=== PATIENT | male | born 1980 | race Hispanic/Latino ===

== ENCOUNTER 2020-10-20 21:02 | Emergency (ER) | payer SELFPAY | END 2020-10-20 22:00 | disposition left against medical advice (07) | LOC: ED 21:02 | DX: K46.9 Unspecified abdominal hernia without obstruction or gangrene (principal); Z53.21 Procedure and treatment not carried out due to patient leaving prior to being seen by health care provider ==

== ENCOUNTER 2020-12-06 17:10 | Observation (INO) | payer OTHER ==
[2020-12-06] MEDS ORDERED: SODIUM CHLORIDE 0.9% 1000 ML 1,000 ML IV ONE (18:53)
[2020-12-06] MEDS ORDERED: ONDANSETRON 4 MG/2 ML INJ IV ONE (18:53)
[2020-12-06] MEDS ORDERED: MORPHINE 4 MG/1 ML INJ IV ONE (18:53)
[2020-12-06] MEDS ORDERED: MORPHINE 2 MG/1 ML INJ IV ONE ×2 (19:08)
[2020-12-06 19:26] LABS: Hematocrit 45.4 % (35.5-45.6); Hemoglobin 15.2 gm/dl (11.8-15.2); Mean Corpuscular HGB Conc 33 % (32-34); Mean Corpuscular Volume 95 fl (84-94); Platelet Count 371 K/mm3 (140-440); Red Blood Count 4.79 M/mm3 (3.65-5.03); Red Cell Distribution Width 13.3 % (13.2-15.2)
[2020-12-06 19:36] LABS: Alanine Aminotransferase 13 units/L (7-56); Albumin 4.9 g/dL (3.9-5); BUN/Creatinine Ratio 13; Blood Urea Nitrogen 10 mg/dL (9-20); Calcium 9.4 mg/dL (8.4-10.2); Hemolysis Index 69
--- NOTE | 2020-12-06 19:45 | Emergency Department Report ---
ED Abdominal Pain HPI - General Chief Complaint: Urogenital-Male Stated Complaint: HERNIA Time Seen by Provider: 12/06/20 18:48 Source: patient Mode of arrival: Ambulatory Limitations: No Limitations - History of Present Illness Initial Comments: Patient is a 40-year-old male presents emergency room complaints of sudden onset of pain from his hernia. He states he has had the hernia for several years. 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 He states earlier today the hernia began to bulge and he was unable to push it back in. He states that it has been increasing in size to the scrotum during the day. He states that he just began vomiting right before he came into the emergency room he states now he is having difficulty urinating. He states his pain is severe. He states he had a normal bowel movement earlier today. He denies any hematochezia, melena, hematemesis, fever. Past medical history of Hodgkin's lymphoma and previous hernia repair. no allergies to meds. Severity scale (0 -10): 10 - Related Data Home Medications Medication Instructions Recorded Confirmed Last Taken Morphine Sulfate [Morphine Sulfate 30 mg PO Q8HR PRN 01/23/13 01/23/13 01/23/13 04:00 ER] Ondansetron (Nf) [Zofran] 8 mg PO Q8HR PRN 01/23/13 01/23/13 01/23/13 04:00 Promethazine HCl [Phenadoz] 25 mg RC Q6HR PRN 01/23/13 01/23/13 01/21/13 Allergies Allergy/AdvReac Type Severity Reaction Status Date / Time No Known Allergies Allergy Verified 01/23/13 09:39 ED Review of Systems ROS: Stated complaint: HERNIA Other details as noted in HPI Comment: All other systems reviewed and negative ED Past Medical Hx - Past Medical History Hx of Cancer: Yes (hodgkins lymphoma 2014) Hx HIV: No - Surgical History Additional Surgical History: hernia repair as kid - Social History Smoking Status: Current Every Day Smoker Substance Use Type: Marijuana - Medications Home Medications: Home Medications Medication Instructions Recorded Confirmed Last Taken Type Morphine Sulfate [Morphine Sulfate 30 mg PO Q8HR PRN 01/23/13 01/23/13 01/23/13 04:00 History ER] Ondansetron (Nf) [Zofran] 8 mg PO Q8HR PRN 01/23/13 01/23/13 01/23/13 04:00 History Promethazine HCl [Phenadoz] 25 mg RC Q6HR PRN 01/23/13 01/23/13 01/21/13 History ED Physical Exam - General Limitations: No Limitations General appearance: alert, other (appears to be in pain ) - Head Head exam: Present: atraumatic, normocephalic - Eye Eye exam: Present: normal appearance - ENT ENT exam: Present: mucous membranes moist - Respiratory Respiratory exam: Present: normal lung sounds bilaterally. Absent: respiratory distress, wheezes, rales, rhonchi, stridor, chest wall tenderness, accessory muscle use, decreased breath sounds, prolonged expiratory - Cardiovascular Cardiovascular Exam: Present: normal rhythm, tachycardia, normal heart sounds - GI/Abdominal GI/Abdominal exam: Present: tenderness, guarding, hernia (there is a large left sided inguinal hernia that is unable to be reduced, dollyman: sagar KUHN). Absent: rebound - Neurological Exam Neurological exam: Present: alert, oriented X3 - Psychiatric Psychiatric exam: Present: normal affect, normal mood - Skin Skin exam: Present: warm, dry, intact ED Course Vital Signs 12/06/20 12/06/20 12/06/20 19:21 19:45 19:47 Pulse Rate 56 L Respiratory 18 14 18 Rate Blood Pressure 156/80 O2 Sat by Pulse 98 Oximetry - Consultations Consultation #1: 12/06/20 19:[address] Osorio, general surgery who will evaluate patient in the ED 12/06/20 20:[address] Ray, hospitalist regarding patient and results and that patient is going to the operating room with Dr. Osorio, general surgery, he will accept and resume care of patient, will admit to hospital service ED Medical Decision Making - Lab Data Result diagrams: 12/06/20 19:00 12/06/20 19:00 Lab Results 12/06/20 12/06/20 Range/Units 19:00 19:00 WBC 20.6 H (4.5-11.0) K/mm3 RBC 4.79 (3.65-5.03) M/mm3 Hgb 15.2 (11.8-15.2) gm/dl Hct 45.4 (35.5-45.6) % MCV 95 H (84-94) fl MCH 32 (28-32) pg MCHC 33 (32-34) % RDW 13.3 (13.2-15.2) % Plt Count 371 (140-440) K/mm3 Sodium 140 (137-145) mmol/L Potassium 4.4 (3.6-5.0) mmol/L Chloride 101.2 (98-107) mmol/L Carbon Dioxide 23 (22-30) mmol/L Anion Gap 20 mmol/L BUN 10 (9-20) mg/dL Creatinine 0.8 (0.8-1.3) mg/dL Estimated GFR > 60 ml/min BUN/Creatinine Ratio 13 % Glucose 148 H (75-100) mg/dL Calcium 9.4 (8.4-10.2) mg/dL Total Bilirubin 0.30 (0.1-1.2) mg/dL AST 21 (5-40) units/L ALT 13 (7-56) units/L Alkaline Phosphatase 62 (35-129) units/L Total Protein 7.3 (6.3-8.2) g/dL Albumin 4.9 (3.9-5) g/dL Albumin/Globulin Ratio 2.0 % Lipase 18 (13-60) units/L Vital Signs 12/06/20 12/06/20 12/06/20 19:21 19:45 19:47 Pulse Rate 56 L Respiratory 18 14 18 Rate Blood Pressure 156/80 O2 Sat by Pulse 98 Oximetry - Medical Decision Making Patient is a 40-year-old male presents emergency room complaints of sudden onset of pain from his hernia. He states he has had the hernia for several years. 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 He states earlier today the hernia began to bulge and he was unable to push it back in. He states that it has been increasing in size to the scrotum during the day. He states that he just began vomiting right before he came into the emergency room he states now he is having difficulty urinating. He states his pain is severe. He states he had a normal bowel movement earlier today. He denies any hematochezia, melena, hematemesis, fever. Past medical history of Hodgkin's lymphoma and previous hernia repair. no allergies to meds. on exam: there is a large left sided inguinal hernia that is unable to be reduced, dollyman: sagar KUHN. labs significant for leukocytosis at 20.6. Spoke to Dr. Osorio, general surgery who will evaluate patient in the ED. Spoke to Dr. Ray, hospitalist regarding patient and results and that patient is going to the operating room with Dr. Osorio, general surgery, he will accept and resume care of patient, will admit to hospital service Critical care attestation.: If time is entered above; I have spent that time in minutes in the direct care of this critically ill patient, excluding procedure time. ED Disposition Clinical Impression: Incarcerated left inguinal hernia Abdominal pain Qualifiers: Abdominal location: left lower quadrant Qualified Code(s): R10.32 - Left lower quadrant pain Testicular pain Qualifiers: Laterality: left Qualified Code(s): N50.812 - Left testicular pain Leukocytosis Qualifiers: Leukocytosis type: unspecified Qualified Code(s): D72.829 - Elevated white blood cell count, unspecified Nausea & vomiting Qualifiers: Vomiting type: unspecified Vomiting Intractability: non-intractable Qualified Code(s): R11.2 - Nausea with vomiting, unspecified Disposition: 09 ADMITTED INPATIENT Is pt being admited?: Yes Does the pt Need Aspirin: No Condition: Fair Referrals: PRIMARY CARE, [Primary Care Provider] - 3-5 Days Time of Disposition: 20:17 Print Language: IRISH
--- NOTE | 2020-12-06 19:54 | Consultation ---
History of Present Illness Consult date: 12/06/20 Reason for consult: abdominal pain - History of present illness History of present illness: 40 yo male with chronic LIH. Was lifting today and hernia became incarcerated. He c/o severe LLQ and left scrotal pain ass'd with nausea and vomiting. He denies hematochezia or fever. Past History Past Medical History: other (Hodgkin's lymphoma of the neck 6 years ago.) Medications and Allergies Allergies Allergy/AdvReac Type Severity Reaction Status Date / Time No Known Allergies Allergy Verified 01/23/13 09:39 Home Medications Medication Instructions Recorded Confirmed Last Taken Type Morphine Sulfate [Morphine Sulfate 30 mg PO Q8HR PRN 01/23/13 01/23/13 01/23/13 04:00 History ER] Ondansetron (Nf) [Zofran] 8 mg PO Q8HR PRN 01/23/13 01/23/13 01/23/13 04:00 History Promethazine HCl [Phenadoz] 25 mg RC Q6HR PRN 01/23/13 01/23/13 01/21/13 History Active Meds: Active Medications Sodium Chloride (Nacl 0.9% 1000 Ml) 1,000 mls @ 999 mls/hr IV BOLUS ONE Stop: 12/06/20 19:53 Last Admin: 12/06/20 19:13 Dose: 999 mls/hr Documented by: Review of Systems All systems: negative (none) Exam Vital Signs Resp 18 12/06/20 19:21 - General physical appearance Positive: well developed, well nourished, moderate distress, moderate pain, cathetic - Eyes Positive: PERRL, normal occular movement - ENT Positive: normal pinna, normal nares, normal mucosa, no hearing loss, no congestion - Neck Positive: no masses, no bruits, trachea midline, no venous distension - Respiratory Positive: normal expansion, normal respiratory effort, clear to auscultation - Cardiovascular Rhythm: regular Heart Sounds: Present: S1 & S2. Absent: rub, click - Extremities Extremities: no ischemia, pulses symmetrical, No edema - Breasts Breasts: normal, no mass, no skin changes - Abdomen Abdomen: Present: soft, bowel sounds hypoactive, other (Mild LLQ pain. Moderate pain on palpation of the left scrotum. No rebound or guarding.). Absent: distended Hernia: none - Genitourinary Male Genitourinary: normal Female Genitourinary: normal - Integumentary no rash, no growths, no abnormal pigmentation - Neurologic Neurologic: alert and oriented to time, place and person, motor strength and sensation are grossly intact - Musculoskeletal normal gait, normal posture - Psychiatric Psychiatric: appropriate mood/affect, intact judgment & insight Results - Labs 12/06/20 19:00 12/06/20 19:00 Abnormal lab results 12/06/20 Range/Units 19:00 WBC 20.6 H (4.5-11.0) K/mm3 MCV 95 H (84-94) fl Assessment and Plan - Patient Problems (1) Incarcerated left inguinal hernia Status: Acute Plan to address problem: 1) To OR for urgent reduction and repair. Pt and girl friend are aware of risks of recurrence, small bowel or colonic gangrene, testis injury and are aware that a SBR or colostomy may be necessary. Loss of left testis was also discussed as well as WA, CVA and . Pt understands these risks and desires to proceed.
[2020-12-06] MEDS ORDERED: BUPIVACAINE/PF (0.5%) 5 MG/1 ML 10 ML VIAL INFILTRATI ONE ×2 (19:59→20:45)
--- NOTE | 2020-12-06 20:06 | Anesthesia Consultation ---
Anesthesia Consult and Med Hx Date of service: 12/06/20 - Airway Anesthetic Teeth Evaluation: Good ROM Head & Neck: Adequate Mental/Hyoid Distance: Adequate Mallampati Class: Class II Intubation Access Assessment: Good - Pulmonary Exam CTA: Yes - Cardiac Exam Cardiac Exam: RRR - Pre-Operative Health Status ASA Pre-Surgery Classification: ASA2 Proposed Anesthetic Plan: General - Pulmonary Hx Smoking: Yes - Central Nervous System Hx Back Pain: Yes (2 mo) Hx Psychiatric Problems: Yes - Other Systems Hx Cancer: Yes
--- NOTE | 2020-12-06 20:07 | Anesthesia Day of Surgery ---
Anesthesia Day of Surgery - Day of Surgery Patient Examined: Yes Patient H&P Reviewed: Yes Patient is NPO: Yes
[2020-12-06] MEDS ORDERED: LIDOCAINE MPF (2%) 20 MG/1 ML VIAL 5 ML ONE (20:13)
[2020-12-06] MEDS ORDERED: ROCURONIUM 50 MG/5 ML INJ IV ONE (20:13)
[2020-12-06] MEDS ORDERED: MIDAZOLAM 2 MG/2 ML INJ ONE (20:13)
[2020-12-06] MEDS ORDERED: fentaNYL 100 MCG/2 ML INJ ONE (20:13)
[2020-12-06] MEDS ORDERED: propofoL 200 MG/20 ML VIAL IV ONE (20:14)
[2020-12-06] MEDS ORDERED: SODIUM CHLORIDE 0.9% IRR 1,500 ML BOTTLE IR ONE (20:47)
[2020-12-06] MEDS ORDERED: KETOROLAC 30 MG/1 ML INJ ONE (20:56)
[2020-12-06] MEDS ORDERED: ONDANSETRON 4 MG/2 ML INJ ONE (20:56)
[2020-12-06] MEDS ORDERED: dexAMETHasone 20 MG/5 ML VIAL ONE (20:56)
[2020-12-06] MEDS ORDERED: HYDROmorphone 1 MG/1 ML INJ ONE (20:58)
[2020-12-06] MEDS ORDERED: NEOSTIGMINE 10MG/10 ML INJ MDV ONE (21:48)
[2020-12-06] MEDS ORDERED: GLYCOPYRROLATE 0.4 MG/2 ML INJ ONE (21:48)
--- NOTE | 2020-12-06 21:49 | Procedure Note ---
Date of procedure: 12/06/20 Pre-op diagnosis: Incarcerated LIH Post-op diagnosis: same Procedure: Open repair of incarcerated LIH Description of procedure: Pt was placed supine on the OR table. GETA was administered. Lower abdomen, penis and scrotum were prepped and draped. The p roposed incision was infiltrated with 8 ml of 0.5% Marcaine. A curvilinear suprapubic incision was made. SQ tissue was transected with the Bovie. External oblique aponeurosis was exposed. The aponeurosis was incised over the inguinal canal through the external inguinal ring. Digital dissection was performed about the hernia sac in the scrotum until the hernia sac was delivered into the wound. The sac was dissected free of the cord structures. The hernia was determined to be of the indirect type. The broad based sac was dissected down to it's fascial margins and was excised. A Bassini type repair was performed by approximating the conjoined tendon medially to the shelving portion of Poupart's ligament laterally with multiple interrupted sutures of 0-Ethibond. The external oblique aponeurosis was approximated with a running suture of 3-0 Vicryl. Skin was approximated with a running subcuticular suture of 4-0 Monocryl. Skin glue was applied followed by a pressure dressing of 4 X 4's secured with Medipore tape. A scrotal support was also placed to help diminish the expected scrotal seroma. Pt tolerated the procedure well. Pt was taken to PACU in stable condition. Findings: Ischemic but viable small bowel Anesthesia: GETA Surgeon: LAVON ALMANZA Estimated blood loss: minimal Pathology: none Specimen disposition: discarded Condition: stable Disposition: PACU
[2020-12-06] MEDS ORDERED: ONDANSETRON 4 MG/2 ML INJ IV PRN (21:59)
[2020-12-06] MEDS ORDERED: ACETAMINOPHEN 325 MG TAB PO PRN (21:59)
[2020-12-06 22:00] LABS: Total Cells Counted 100
[2020-12-06 22:01] LABS: Platelet Estimate Consistent w Auto; RBC Morphology Normal
[2020-12-06] MEDS ORDERED: MEPERIDINE 25 MG/1 ML INJ ONE (22:09)
[2020-12-07] MEDS: AMPICILLIN/SULBACTA 3GM/100ML 3 GM/100 ML BAG IV SCH ×4 (00:56→17:44)
[2020-12-07] MEDS: D5W/0.9% NACL 1,000 ML IV SCH ×2 (00:57→17:44)
[2020-12-07] MEDS: HEPARIN 5,000 UNIT/1 ML VIAL SUB-Q SCH ×3 (00:59→22:06)
[2020-12-07 06:14] LABS: Hematocrit 36.4 % (35.5-45.6); Hemoglobin 12.4 gm/dl (11.8-15.2); Lymphocytes # (Auto) 1.1 K/mm3 (1.2-5.4); Lymphocytes % (Auto) 7.5 % (13.4-35.0); Mean Corpuscular HGB Conc 34 % (32-34); Mean Corpuscular Volume 95 fl (84-94); Monocytes % (Auto) 6.3 % (0.0-7.3); Platelet Count 279 K/mm3 (140-440); Red Blood Count 3.82 M/mm3 (3.65-5.03); Red Cell Distribution Width 13.1 % (13.2-15.2)
[2020-12-07 06:36] LABS: Alanine Aminotransferase 9 units/L (7-56); Albumin 3.5 g/dL (3.9-5); Blood Urea Nitrogen 9 mg/dL (9-20); Calcium 7.4 mg/dL (8.4-10.2); Hemolysis Index 30
[2020-12-07 06:44] LABS: BUN/Creatinine Ratio 13
--- NOTE | 2020-12-07 07:35 | History and Physical Report ---
History of Present Illness Date of examination: 12/06/20 Date of admission: 12/06/20 23:36 Chief complaint: Obstructed left inguinal hernia and unable to reduce it since morning History of present illness: 40-year-old male with left inguinal hernia for several years comes in for pain and unable to push back and unreducible hernia. Pain is about 8 on a scale of 1-10. Hernia is increasing in size extending into the scrotum. Also vomiting since afternoon. In the emergency room patient was diagnosed with incarcerated hernia and no significant past medical history except for lymphoma which was treated. - Past Medical History --Cancer: Yes (hodgkins lymphoma 2014) - Surgical History Additional Surgical History: hernia repair as kid - Social History Smoking Status: Current Every Day Smoker Substance Use Type: Marijuana - Medications Home Medications: Home Medications Medication Instructions Recorded Confirmed Last Taken Type Morphine Sulfate [Morphine Sulfate 30 mg PO Q8HR PRN 01/23/13 01/23/13 01/23/13 04:00 History ER] Ondansetron (Nf) [Zofran] 8 mg PO Q8HR PRN 01/23/13 01/23/13 01/23/13 04:00 History Promethazine HCl [Phenadoz] 25 mg RC Q6HR PRN 01/23/13 01/23/13 01/21/13 History Review of Systems ROS: Stated complaint: HERNIA Other details as noted in HPI Comment: All other systems reviewed and negative Past History Past Medical History: other (Hodgkin's lymphoma of the neck 6 years ago.) Medications and Allergies Allergies Allergy/AdvReac Type Severity Reaction Status Date / Time No Known Allergies Allergy Verified 01/23/13 09:39 Home Medications Medication Instructions Recorded Confirmed Last Taken Type Morphine Sulfate [Morphine Sulfate 30 mg PO Q8HR PRN 01/23/13 12/06/20 01/23/13 04:00 History ER] Ondansetron (Nf) [Zofran] 8 mg PO Q8HR PRN 01/23/13 12/06/20 01/23/13 04:00 History Promethazine HCl [Phenadoz] 25 mg RC Q6HR PRN 01/23/13 12/06/20 01/21/13 History Active Meds: Active Medications Acetaminophen (Acetaminophen 325 Mg Tab) 650 mg PO Q4H PRN PRN Reason: Pain MILD(1-3)/Fever >100.5/SANTILLAN Heparin Sodium (Porcine) (Heparin 5,000 Unit/1 Ml Vial) 5,000 unit SUB-Q Q12HR [facility] Last Admin: 12/07/20 00:59 Dose: 5,000 unit Documented by: Hydromorphone HCl (Hydromorphone 1 Mg/1 Ml Inj) 0.5 mg IV Q3H PRN PRN Reason: Pain , Severe (7-10) Dextrose/Sodium Chloride (D5ns) 1,000 mls @ 100 mls/hr IV DIRECT [facility] Last Admin: 12/07/20 00:57 Dose: 100 mls/hr Documented by: Ampicillin Sodium/Sulbactam Sodium (Unasyn/Ns 3 Gm/100 Ml) 3 gm in 100 mls @ 1 00 mls/hr IV Q6HR [facility]; Protocol Last Admin: 12/07/20 05:32 Dose: 100 mls/hr Documented by: Morphine Sulfate (Morphine 2 Mg/1 Ml Inj) 2 mg IV Q4H PRN PRN Reason: Pain, Moderate (4-6) Ondansetron HCl (Ondansetron 4 Mg/2 Ml Inj) 4 mg IV Q8H PRN PRN Reason: Nausea And Vomiting Sodium Chloride (Sodium Chloride 0.9% 10 Ml Flush Syringe) 10 ml IV BID [facility] Last Admin: 12/07/20 01:20 Dose: 10 ml Documented by: Sodium Chloride (Sodium Chloride 0.9% 10 Ml Flush Syringe) 10 ml IV PRN PRN PRN Reason: LINE FLUSH Exam - Constitutional Vitals: Temp Pulse Resp BP Pulse Ox 97.7 F 62 18 110/64 96 12/07/20 06:01 12/07/20 06:01 12/07/20 06:01 12/07/20 06:01 12/07/20 06:01 General appearance: Present: mild distress, well-nourished - EENT Eyes: Present: PERRL ENT: hearing intact, clear oral mucosa - Neck Neck: Present: supple, normal ROM - Respiratory Respiratory effort: normal Respiratory: bilateral: CTA - Cardiovascular Heart rate: 78 Rhythm: regular Heart Sounds: Present: S1 & S2. Absent: rub, click - Extremities Extremities: no ischemia, pulses symmetrical, No edema, abnormal (Left inguinal hernia not reducible) Peripheral Pulses: within normal limits - Abdominal General gastrointestinal: Present: tender (Left inguinal hernia), hypoactive bowel sounds, hernia (Left inguinal hernia-- unable to reduce) Male genitourinary: Present: normal - Integumentary Integumentary: Present: clear, warm, dry - Musculoskeletal Musculoskeletal: gait normal, strength equal bilaterally - Psychiatric Psychiatric: appropriate mood/affect, intact judgment & insight - Neurologic Neurologic: CNII-XII intact, moves all extremities Results - Labs CBC & Chem 7: 12/07/20 04:00 12/07/20 04:00 Labs: Laboratory Last Values WBC 15.2 K/mm3 (4.5-11.0) H 12/07/20 04:00 RBC 3.82 M/mm3 (3.65-5.03) 12/07/20 04:00 Hgb 12.4 gm/dl (11.8-15.2) 12/07/20 04:00 Hct 36.4 % (35.5-45.6) D 12/07/20 04:00 MCV 95 fl (84-94) H 12/07/20 04:00 MCH 32 pg (28-32) 12/07/20 04:00 MCHC 34 % (32-34) 12/07/20 04:00 RDW 13.1 % (13.2-15.2) L 12/07/20 04:00 Plt Count 279 K/mm3 (140-440) 12/07/20 04:00 Lymph % (Auto) 7.5 % (13.4-35.0) L 12/07/20 04:00 Burnett % (Auto) 6.3 % (0.0-7.3) 12/07/20 04:00 Eos % (Auto) 0.0 % (0.0-4.3) 12/07/20 04:00 Baso % (Auto) 0.0 % (0.0-1.8) 12/07/20 04:00 Lymph # (Auto) 1.1 K/mm3 (1.2-5.4) L 12/07/20 04:00 Burnett # (Auto) 1.0 K/mm3 (0.0-0.8) H 12/07/20 04:00 Eos # (Auto) 0.0 K/mm3 (0.0-0.4) 12/07/20 04:00 Baso # (Auto) 0.0 K/mm3 (0.0-0.1) 12/07/20 04:00 Add Manual Diff Complete 12/06/20 19:00 Total Counted 100 12/06/20 19:00 Seg Neutrophils % 86.2 % (40.0-70.0) H 12/07/20 04:00 Seg Neuts % (Manual) 85.0 % (40.0-70.0) H 12/06/20 19:00 Lymphocytes % (Manual) 8.0 % (13.4-35.0) L 12/06/20 19:00 Monocytes % (Manual) 7.0 % (0.0-7.3) 12/06/20 19:00 Nucleated RBC % Not Reportable 12/06/20 19:00 Seg Neutrophils # 13.1 K/mm3 (1.8-7.7) H 12/07/20 04:00 Seg Neutrophils # Man 17.5 K/mm3 (1.8-7.7) H 12/06/20 19:00 Band Neutrophils # 0.0 K/mm3 12/06/20 19:00 Lymphocytes # (Manual) 1.6 K/mm3 (1.2-5.4) 12/06/20 19:00 Abs React Lymphs (Man) 0.0 K/mm3 12/06/20 19:00 Monocytes # (Manual) 1.4 K/mm3 (0.0-0.8) H 12/06/20 19:00 Eosinophils # (Manual) 0.0 K/mm3 (0.0-0.4) 12/06/20 19:00 Basophils # (Manual) 0.0 K/mm3 (0.0-0.1) 12/06/20 19:00 Metamyelocytes # 0.0 K/mm3 12/06/20 19:00 Myelocytes # 0.0 K/mm3 12/06/20 19:00 Promyelocytes # 0.0 K/mm3 12/06/20 19:00 Blast Cells # 0.0 K/mm3 12/06/20 19:00 WBC Morphology Not Reportable 12/06/20 19:00 Hypersegmented Neuts Not Reportable 12/06/20 19:00 Hyposegmented Neuts Not Reportable 12/06/20 19:00 Hypogranular Neuts Not Reportable 12/06/20 19:00 Smudge Cells Not Reportable 12/06/20 19:00 Toxic Granulation Not Reportable 12/06/20 19:00 Toxic Vacuolation Not Reportable 12/06/20 19:00 Dohle Bodies Not Reportable 12/06/20 19:00 Pelger-Huet Anomaly Not Reportable 12/06/20 19:00 Asmita Rods Not Reportable 12/06/20 19:00 Platelet Estimate Consistent w auto 12/06/20 19:00 Clumped Platelets Not Reportable 12/06/20 19:00 Plt Clumps, EDTA Not Reportable 12/06/20 19:00 Large Platelets Not Reportable 12/06/20 19:00 Giant Platelets Not Reportable 12/06/20 19:00 Platelet Satelliting Not Reportable 12/06/20 19:00 Plt Morphology Comment Not Reportable 12/06/20 19:00 RBC Morphology Normal 12/06/20 19:00 Dimorphic RBCs Not Reportable 12/06/20 19:00 Polychromasia Not Reportable 12/06/20 19:00 Hypochromasia Not Reportable 12/06/20 19:00 Poikilocytosis Not Reportable 12/06/20 19:00 Anisocytosis Not Reportable 12/06/20 19:00 Microcytosis Not Reportable 12/06/20 19:00 Macrocytosis Not Reportable 12/06/20 19:00 Spherocytes Not Reportable 12/06/20 19:00 Pappenheimer Bodies Not Reportable 12/06/20 19:00 Sickle Cells Not Reportable 12/06/20 19:00 Target Cells Not Reportable 12/06/20 19:00 Tear Drop Cells Not Reportable 12/06/20 19:00 Ovalocytes Not Reportable 12/06/20 19:00 Helmet Cells Not Reportable 12/06/20 19:00 [place] Bodies Not Reportable 12/06/20 19:00 [place] Rings Not Reportable 12/06/20 19:00 [place] Cells Not Reportable 12/06/20 19:00 Bite Cells Not Reportable 12/06/20 19:00 Crenated Cell Not Reportable 12/06/20 19:00 Elliptocytes Not Reportable 12/06/20 19:00 Acanthocytes (Spur) Not Reportable 12/06/20 19:00 Rouleaux Not Reportable 12/06/20 19:00 Hemoglobin C Crystals Not Reportable 12/06/20 19:00 Schistocytes Not Reportable 12/06/20 19:00 Malaria parasites Not Reportable 12/06/20 19:00 Michael Bodies Not Reportable 12/06/20 19:00 Hem Pathologist Commnt No 12/06/20 19:00 Sodium 137 mmol/L (137-145) 12/07/20 04:00 Potassium 4.5 mmol/L (3.6-5.0) 12/07/20 04:00 Chloride 105.5 mmol/L (98-107) 12/07/20 04:00 Carbon Dioxide 20 mmol/L (22-30) L 12/07/20 04:00 Anion Gap 16 mmol/L 12/07/20 04:00 BUN 9 mg/dL (9-20) 12/07/20 04:00 Creatinine 0.7 mg/dL (0.8-1.3) L 12/07/20 04:00 Estimated GFR > 60 ml/min 12/07/20 04:00 BUN/Creatinine Ratio 13 % 12/07/20 04:00 Glucose 134 mg/dL (75-100) H 12/07/20 04:00 Calcium 7.4 mg/dL (8.4-10.2) L D 12/07/20 04:00 Total Bilirubin 0.40 mg/dL (0.1-1.2) 12/07/20 04:00 AST 14 units/L (5-40) 12/07/20 04:00 ALT 9 units/L (7-56) 12/07/20 04:00 Alkaline Phosphatase 44 units/L (35-129) 12/07/20 04:00 Total Protein 5.6 g/dL (6.3-8.2) L D 12/07/20 04:00 Albumin 3.5 g/dL (3.9-5) L 12/07/20 04:00 Albumin/Globulin Ratio 1.7 % 12/07/20 04:00 Lipase 18 units/L (13-60) 12/06/20 19:00 Short CBC 12/06/20 12/07/20 Range/Units 19:00 04:00 WBC 20.6 H 15.2 H (4.5-11.0) K/mm3 Hgb 15.2 12.4 (11.8-15.2) gm/dl Hct 45.4 36.4 D (35.5-45.6) % Plt Count 371 279 (140-440) K/mm3 BMP 12/06/20 12/07/20 19:00 04:00 Sodium 140 137 Potassium 4.4 4.5 Chloride 101.2 105.5 Carbon Dioxide 23 20 L BUN 10 9 Creatinine 0.8 0.7 L Glucose 148 H 134 H Calcium 9.4 7.4 L D Liver Function 12/06/20 12/07/20 Range/Units 19:00 04:00 Total Bilirubin 0.30 0.40 (0.1-1.2) mg/dL AST 21 14 (5-40) units/L ALT 13 9 (7-56) units/L Alkaline Phosphatase 62 44 (35-129) units/L Albumin 4.9 3.5 L (3.9-5) g/dL [place]/IV: Voiding Method Indwelling Catheter Assessment and Plan Advance Directives: Yes (Full code) VTE prophylaxis?: Chemical Plan of care discussed with patient/family: Yes - Patient Problems (1) Incarcerated left inguinal hernia Current Visit: Yes Status: Acute Plan to address problem: Surgery consult requested Patient waiting for emergent surgery today (2) DVT prophylaxis Current Visit: Yes Status: Acute Plan to address problem: On anticoagulation GI prophylaxis
--- NOTE | 2020-12-07 09:02 | Progress Note ---
Assessment and Plan Assessment and plan: -- Incarcerated left inguinal hernia Current Visit: Yes Status: Acute Surgery evaluated the patient Underwent surgical procedure s/p Open repair of incarcerated left inguinal hernia Postop care per surgery NG tube and n.p.o. status,, pain medications and IV fluids --Leukocytosis; Due to incarcerated inguinal hernia Continue antibiotics --SIRS; On empiric antibiotics Treat the underlying cause -- DVT prophylaxis Current Visit: Yes Status: Acute On anticoagulation GI prophylaxis Surgery evaluation recommendations noted and appreciated Closely monitor the patient and adjust management as needed History Interval history: I have seen and examined the patient at the bedside this morning Patient's chart and medications reviewed Patient underwent surgery for incarcerated hernia Patient complains of mild pain at the surgical site as well as uncomfortable with NG tube Hospitalist Physical - Constitutional Vitals: Temp Pulse Resp BP Pulse Ox 97.7 F 62 18 110/64 96 12/07/20 06:01 12/07/20 06:01 12/07/20 06:01 12/07/20 06:01 12/07/20 06:01 General appearance: Present: mild distress, well-nourished - EENT Eyes: Present: PERRL, EOM intact ENT: other (NG tube ) - Neck Neck: Present: supple, normal ROM - Respiratory Respiratory effort: normal Respiratory: bilateral: diminished, negative: rales, rhonchi, wheezing - Cardiovascular Rhythm: regular Heart Sounds: Present: S1 & S2 - Extremities Extremities: no ischemia, No edema - Abdominal General gastrointestinal: soft, non-tender, non-distended, normal bowel sounds - Integumentary Integumentary: Present: clear, warm - Psychiatric Psychiatric: appropriate mood/affect, cooperative - Neurologic Neurologic: moves all extremities Results - Labs CBC & Chem 7: 12/07/20 04:00 12/07/20 04:00 Labs: Laboratory Last Values WBC 15.2 K/mm3 (4.5-11.0) H 12/07/20 04:00 RBC 3.82 M/mm3 (3.65-5.03) 12/07/20 04:00 Hgb 12.4 gm/dl (11.8-15.2) 12/07/20 04:00 Hct 36.4 % (35.5-45.6) D 12/07/20 04:00 MCV 95 fl (84-94) H 12/07/20 04:00 MCH 32 pg (28-32) 12/07/20 04:00 MCHC 34 % (32-34) 12/07/20 04:00 RDW 13.1 % (13.2-15.2) L 12/07/20 04:00 Plt Count 279 K/mm3 (140-440) 12/07/20 04:00 Lymph % (Auto) 7.5 % (13.4-35.0) L 12/07/20 04:00 [place] % (Auto) 6.3 % (0.0-7.3) 12/07/20 04:00 Eos % (Auto) 0.0 % (0.0-4.3) 12/07/20 04:00 Baso % (Auto) 0.0 % (0.0-1.8) 12/07/20 04:00 Lymph # (Auto) 1.1 K/mm3 (1.2-5.4) L 12/07/20 04:00 [place] # (Auto) 1.0 K/mm3 (0.0-0.8) H 12/07/20 04:00 Eos # (Auto) 0.0 K/mm3 (0.0-0.4) 12/07/20 04:00 Baso # (Auto) 0.0 K/mm3 (0.0-0.1) 12/07/20 04:00 Add Manual Diff Complete 12/06/20 19:00 Total Counted 100 12/06/20 19:00 Seg Neutrophils % 86.2 % (40.0-70.0) H 12/07/20 04:00 Seg Neuts % (Manual) 85.0 % (40.0-70.0) H 12/06/20 19:00 Lymphocytes % (Manual) 8.0 % (13.4-35.0) L 12/06/20 19:00 Monocytes % (Manual) 7.0 % (0.0-7.3) 12/06/20 19:00 Nucleated RBC % Not Reportable 12/06/20 19:00 Seg Neutrophils # 13.1 K/mm3 (1.8-7.7) H 12/07/20 04:00 Seg Neutrophils # Man 17.5 K/mm3 (1.8-7.7) H 12/06/20 19:00 Band Neutrophils # 0.0 K/mm3 12/06/20 19:00 Lymphocytes # (Manual) 1.6 K/mm3 (1.2-5.4) 12/06/20 19:00 Abs React Lymphs (Man) 0.0 K/mm3 12/06/20 19:00 Monocytes # (Manual) 1.4 K/mm3 (0.0-0.8) H 12/06/20 19:00 Eosinophils # (Manual) 0.0 K/mm3 (0.0-0.4) 12/06/20 19:00 Basophils # (Manual) 0.0 K/mm3 (0.0-0.1) 12/06/20 19:00 Metamyelocytes # 0.0 K/mm3 12/06/20 19:00 Myelocytes # 0.0 K/mm3 12/06/20 19:00 Promyelocytes # 0.0 K/mm3 12/06/20 19:00 Blast Cells # 0.0 K/mm3 12/06/20 19:00 WBC Morphology Not Reportable 12/06/20 19:00 Hypersegmented Neuts Not Reportable 12/06/20 19:00 Hyposegmented Neuts Not Reportable 12/06/20 19:00 Hypogranular Neuts Not Reportable 12/06/20 19:00 Smudge Cells Not Reportable 12/06/20 19:00 Toxic Granulation Not Reportable 12/06/20 19:00 Toxic Vacuolation Not Reportable 12/06/20 19:00 Dohle Bodies Not Reportable 12/06/20 19:00 Pelger-Huet Anomaly Not Reportable 12/06/20 19:00 Asmita Rods Not Reportable 12/06/20 19:00 Platelet Estimate Consistent w auto 12/06/20 19:00 Clumped Platelets Not Reportable 12/06/20 19:00 Plt Clumps, EDTA Not Reportable 12/06/20 19:00 Large Platelets Not Reportable 12/06/20 19:00 Giant Platelets Not Reportable 12/06/20 19:00 Platelet Satelliting Not Reportable 12/06/20 19:00 Plt Morphology Comment Not Reportable 12/06/20 19:00 RBC Morphology Normal 12/06/20 19:00 Dimorphic RBCs Not Reportable 12/06/20 19:00 Polychromasia Not Reportable 12/06/20 19:00 Hypochromasia Not Reportable 12/06/20 19:00 Poikilocytosis Not Reportable 12/06/20 19:00 Anisocytosis Not Reportable 12/06/20 19:00 Microcytosis Not Reportable 12/06/20 19:00 Macrocytosis Not Reportable 12/06/20 19:00 Spherocytes Not Reportable 12/06/20 19:00 Pappenheimer Bodies Not Reportable 12/06/20 19:00 Sickle Cells Not Reportable 12/06/20 19:00 Target Cells Not Reportable 12/06/20 19:00 Tear Drop Cells Not Reportable 12/06/20 19:00 Ovalocytes Not Reportable 12/06/20 19:00 Helmet Cells Not Reportable 12/06/20 19:00 [place] Bodies Not Reportable 12/06/20 19:00 [place] Rings Not Reportable 12/06/20 19:00 [place] Cells Not Reportable 12/06/20 19:00 Bite Cells Not Reportable 12/06/20 19:00 Crenated Cell Not Reportable 12/06/20 19:00 Elliptocytes Not Reportable 12/06/20 19:00 Acanthocytes (Spur) Not Reportable 12/06/20 19:00 Rouleaux Not Reportable 12/06/20 19:00 Hemoglobin C Crystals Not Reportable 12/06/20 19:00 Schistocytes Not Reportable 12/06/20 19:00 Malaria parasites Not Reportable 12/06/20 19:00 Michael Bodies Not Reportable 12/06/20 19:00 Hem Pathologist Commnt No 12/06/20 19:00 Sodium 137 mmol/L (137-145) 12/07/20 04:00 Potassium 4.5 mmol/L (3.6-5.0) 12/07/20 04:00 Chloride 105.5 mmol/L (98-107) 12/07/20 04:00 Carbon Dioxide 20 mmol/L (22-30) L 12/07/20 04:00 Anion Gap 16 mmol/L 12/07/20 04:00 BUN 9 mg/dL (9-20) 12/07/20 04:00 Creatinine 0.7 mg/dL (0.8-1.3) L 12/07/20 04:00 Estimated GFR > 60 ml/min 12/07/20 04:00 BUN/Creatinine Ratio 13 % 12/07/20 04:00 Glucose 134 mg/dL (75-100) H 12/07/20 04:00 Calcium 7.4 mg/dL (8.4-10.2) L D 12/07/20 04:00 Total Bilirubin 0.40 mg/dL (0.1-1.2) 12/07/20 04:00 AST 14 units/L (5-40) 12/07/20 04:00 ALT 9 units/L (7-56) 12/07/20 04:00 Alkaline Phosphatase 44 units/L (35-129) 12/07/20 04:00 Total Protein 5.6 g/dL (6.3-8.2) L D 12/07/20 04:00 Albumin 3.5 g/dL (3.9-5) L 12/07/20 04:00 Albumin/Globulin Ratio 1.7 % 12/07/20 04:00 Lipase 18 units/L (13-60) 12/06/20 19:00 [place]/IV: Voiding Method Indwelling Catheter Active Medications - Current Medications Current Medications: Generic Name Dose Route Start Last Admin Trade Name Freq PRN Reason Stop Dose Admin Acetaminophen 650 mg 12/06/20 21:59 Acetaminophen 325 Mg Tab PO Q4H PRN Pain MILD(1-3)/Fever >100.5/SANTILLNA Heparin Sodium (Porcine) 5,000 unit 12/06/20 22:15 12/07/20 00:59 Heparin 5,000 Unit/1 Ml Vial SUB-Q 5,000 unit Q12HR BENJY Administration Hydromorphone HCl 0.5 mg 12/06/20 21:59 Hydromorphone 1 Mg/1 Ml Inj IV Q3H PRN Pain , Severe (7-10) Dextrose/Sodium Chloride 1,000 mls @ 100 mls/hr 12/06/20 22:00 12/07/20 00:57 D5ns IV 100 mls/hr DIRECT BENJY Administration Ampicillin Sodium/Sulbactam Sodium 3 gm in 100 mls @ 100 mls/hr 12/07/20 00:00 12/07/20 05:32 Unasyn/Ns 3 Gm/100 Ml IV 100 mls/hr Q6HR BENJY Administration Protocol Morphine Sulfate 2 mg 12/06/20 21:59 Morphine 2 Mg/1 Ml Inj IV Q4H PRN Pain, Moderate (4-6) Ondansetron HCl 4 mg 12/06/20 21:59 Ondansetron 4 Mg/2 Ml Inj IV Q8H PRN Nausea And Vomiting Sodium Chloride 10 ml 12/06/20 22:00 12/07/20 01:20 Sodium Chloride 0.9% 10 Ml Flush Syringe IV 10 ml BID BENJY Administration Sodium Chloride 10 ml 12/06/20 21:59 Sodium Chloride 0.9% 10 Ml Flush Syringe IV PRN PRN LINE FLUSH
[2020-12-07] MEDS: MORPHINE 2 MG/1 ML INJ IV PRN ×2 (12:39→17:45)
--- NOTE | 2020-12-07 15:02 | Post Anesthesia Evaluation ---
- Post Anesthesia Evaluation Patient Participated: Yes Airway Patent: Yes Stable Respiratory Function: Yes Nausea/Vomiting: No Temp > 96.8F: Yes Pain Manageable: Yes Adequeate Hydration: Yes Anesthesia Complications: No Block Receding Appropriately: Not Applicable Patient on Ventilator: No
--- NOTE | 2020-12-07 17:29 | Progress Note ---
Assessment and Plan - Patient Problems (1) Incarcerated left inguinal hernia Current Visit: Yes Status: Acute Plan to address problem: 1) DC NG 2) CLD 3) CBC in the am Subjective Date of service: 12/07/20 Patient Reports: Positive: no new complaints, feels better, pain is less, flatus Objective Vital Signs - 12hr 12/07/20 12/07/20 12/07/20 06:01 10:00 11:02 Temperature 97.7 F 98.5 F Pulse Rate 62 59 L Respiratory 18 16 Rate Blood Pressure 110/64 104/72 O2 Sat by Pulse 96 96 97 Oximetry 12/07/20 12:39 Temperature Pulse Rate Respiratory 18 Rate Blood Pressure O2 Sat by Pulse Oximetry - Abdomen soft, not tender, bowel sounds normal, not distended, not rebound, not guarding - Labs 12/07/20 04:00 12/07/20 04:00 Diabetes panel 12/06/20 12/07/20 Range/Units 19:00 04:00 Sodium 140 137 (137-145) mmol/L Potassium 4.4 4.5 (3.6-5.0) mmol/L Chloride 101.2 105.5 (98-107) mmol/L Carbon Dioxide 23 20 L (22-30) mmol/L BUN 10 9 (9-20) mg/dL Creatinine 0.8 0.7 L (0.8-1.3) mg/dL Glucose 148 H 134 H (75-100) mg/dL Calcium 9.4 7.4 L D (8.4-10.2) mg/dL AST 21 14 (5-40) units/L ALT 13 9 (7-56) units/L Alkaline Phosphatase 62 44 (35-129) units/L Total Protein 7.3 5.6 L D (6.3-8.2) g/dL Albumin 4.9 3.5 L (3.9-5) g/dL Calcium panel 12/06/20 12/07/20 Range/Units 19:00 04:00 Calcium 9.4 7.4 L D (8.4-10.2) mg/dL Albumin 4.9 3.5 L (3.9-5) g/dL Pituitary panel 12/06/20 12/07/20 Range/Units 19:00 04:00 Sodium 140 137 (137-145) mmol/L Potassium 4.4 4.5 (3.6-5.0) mmol/L Chloride 101.2 105.5 (98-107) mmol/L Carbon Dioxide 23 20 L (22-30) mmol/L BUN 10 9 (9-20) mg/dL Creatinine 0.8 0.7 L (0.8-1.3) mg/dL Glucose 148 H 134 H (75-100) mg/dL Calcium 9.4 7.4 L D (8.4-10.2) mg/dL Adrenal panel 12/06/20 12/07/20 Range/Units 19:00 04:00 Sodium 140 137 (137-145) mmol/L Potassium 4.4 4.5 (3.6-5.0) mmol/L Chloride 101.2 105.5 (98-107) mmol/L Carbon Dioxide 23 20 L (22-30) mmol/L BUN 10 9 (9-20) mg/dL Creatinine 0.8 0.7 L (0.8-1.3) mg/dL Glucose 148 H 134 H (75-100) mg/dL Calcium 9.4 7.4 L D (8.4-10.2) mg/dL Total Bilirubin 0.30 0.40 (0.1-1.2) mg/dL AST 21 14 (5-40) units/L ALT 13 9 (7-56) units/L Alkaline Phosphatase 62 44 (35-129) units/L Total Protein 7.3 5.6 L D (6.3-8.2) g/dL Albumin 4.9 3.5 L (3.9-5) g/dL
[2020-12-08] MEDS: AMPICILLIN/SULBACTA 3GM/100ML 3 GM/100 ML BAG IV SCH ×3 (00:23→12:00)
[2020-12-08] MEDS: HYDROmorphone 1 MG/1 ML INJ IV PRN ×2 (00:23→09:59)
[2020-12-08] MEDS: HEPARIN 5,000 UNIT/1 ML VIAL SUB-Q SCH (09:59)
[2020-12-08] MEDS: D5W/0.9% NACL 1,000 ML IV SCH (10:10)
[2020-12-08 11:00] LABS: Basophils % (Auto) 0.2 % (0.0-1.8); Eosinophils % (Auto) 0.3 % (0.0-4.3); Hematocrit 38.6 % (35.5-45.6); Hemoglobin 13.1 gm/dl (11.8-15.2); Lymphocytes # (Auto) 1.7 K/mm3 (1.2-5.4); Lymphocytes % (Auto) 18.3 % (13.4-35.0); Mean Corpuscular HGB Conc 34 % (32-34); Mean Corpuscular Volume 96 fl (84-94); Monocytes # (Auto) 0.8 K/mm3 (0.0-0.8); Monocytes % (Auto) 9.2 % (0.0-7.3); Platelet Count 270 K/mm3 (140-440); Red Blood Count 4.02 M/mm3 (3.65-5.03); Red Cell Distribution Width 12.8 % (13.2-15.2)
--- NOTE | 2020-12-08 11:23 | Progress Note ---
Assessment and Plan - Patient Problems (1) Incarcerated left inguinal hernia Current Visit: Yes Status: Acute Plan to address problem: 1) Okay for discharge. 2) F/u in my office in 2 weeks 3) ANNITA colon 4) May shower tomorrow. 5) No lifting or straining 6) Regular diet 7) Rx - Narcotic of choice Subjective Date of service: 12/08/20 Patient Reports: Positive: no new complaints, feels better, pain is less, tolerating liquids well, flatus, bowel movement. Negative: nausea, vomiting Objective Vital Signs - 12hr 12/08/20 12/08/20 12/08/20 00:23 00:53 05:16 Temperature 99.0 F Pulse Rate 57 L Respiratory 18 20 18 Rate Blood Pressure 123/69 O2 Sat by Pulse 98 Oximetry 12/08/20 09:59 Temperature Pulse Rate Respiratory 20 Rate Blood Pressure O2 Sat by Pulse Oximetry - Abdomen soft, not tender, bowel sounds normal, not rebound, not guarding - Labs 12/08/20 10:02 12/07/20 04:00
[2020-12-08 13:18] LABS: Blood Urea Nitrogen 8 mg/dL (9-20); Calcium 8.3 mg/dL (8.4-10.2); Hemolysis Index 28
[2020-12-08 13:24] LABS: BUN/Creatinine Ratio 11
--- NOTE | 2020-12-08 13:25 | Discharge Summary ---
Providers - Providers Date of Admission: 12/06/20 23:36 Date of discharge: 12/08/20 Attending physician: DEEPA ANGELO 12/06/20 19:25 Consult to Physician [CONS] Stat Comment: Consulting Provider: LAVON OSORIO Physician Instructions: Reason For Exam: incarcerated hernia Primary care physician: BUSHEL GIRL Hospitalization Reason for admission: Obstructed left inguinal hernia/patient unable to reduce Condition: Fair Procedures: s/p Open repair of incarcerated left inguinal hernia Hospital course: Patient was cleared for discharge by surgeon this afternoon Obstructed left inguinal hernia and unable to reduce it since morning 40-year-old male with left inguinal hernia for several years comes in for pain and unable to push back and unreducible hernia. Initial evaluation is consistent with incarcerated left inguinal hernia, patient was admitted symptomatically managed subsequently evaluated by surgeon, patient underwent open repair of incarcerated left inguinal hernia, patient had uncomplicated postoperative period, was slowly started on clear liquids advance to regular diet this morning Today patient is comfortable had flatus, able to tolerate regular diet, surgeon has cleared for discharge With instructions not to strain or lift heavy weights and follow-up in his office in 2 weeks Patient also advised smoking cessation , nicotine patch as needed Patient is stable at discharge. Discharge diagnosis: -- Incarcerated left inguinal hernia Current Visit: Yes Status: Acute Surgery evaluated the patient Underwent surgical procedure s/p Open repair of incarcerated left inguinal hernia Uneventful postop period NG tube discontinued DC Quinteros Regular diet Cleared for discharge --Leukocytosis; Due to incarcerated inguinal hernia Resolved --SIRS; Resolved --Ongoing tobacco use Smoking cessation counseling Nicotine patch as needed Patient is stable at discharge Cleared by surgeon Disposition: 01 HOME / SELF CARE / HOMELESS Final Discharge Diagnosis (Prints w/discharge instructions): Incarcerated left inguinal hernia. s/p open repair of incarcerated left hernia. Leukocytosis resolved. Source, resolved. Ongoing tobacco use Time spent for discharge: 35 min Core Measure Documentation - Palliative Care Palliative Care/ Comfort Measures: Not Applicable - Core Measures Any of the following diagnoses?: none Exam - Constitutional Vitals: Temp Pulse Resp BP Pulse Ox 99.0 F 57 L 20 123/69 98 12/08/20 05:16 12/08/20 05:16 12/08/20 09:59 12/08/20 05:16 12/08/20 05:16 General appearance: Present: no acute distress, well-nourished - EENT Eyes: Present: PERRL, EOM intact - Neck Neck: Present: supple, normal ROM - Respiratory Respiratory effort: normal Respiratory: bilateral: diminished, negative: rales, rhonchi, wheezing - Cardiovascular Rhythm: regular Heart Sounds: Present: S1 & S2 - Extremities Extremities: no ischemia, No edema - Abdominal General gastrointestinal: Present: soft, non-tender, non-distended, normal bowel sounds - Integumentary Integumentary: Present: clear, warm - Musculoskeletal Musculoskeletal: strength equal bilaterally - Psychiatric Psychiatric: appropriate mood/affect, cooperative - Neurologic Neurologic: CNII-XII intact, moves all extremities Plan Activity: advance as tolerated, other (No lifting or straining until you see the surgeon) Diet: regular Special Instructions: smoking cessation Additional Instructions: F/u in Dr. Osorio's office in 2 weeks. May shower tomorrow. No lifting or straining. Regular diet. If you have worsening symptoms contact MD or go to the nearest. emergency room as needed. Follow up with: PRIMARY CARE, [Primary Care Provider] - 3-5 Days LAVON OSORIO MD [Staff Physician] - 14 Days Prescriptions: oxyCODONE /ACETAMINOPHEN [Percocet 5/325] 1 tab PO TID PRN #15 tablet PRN Reason: Pain , Severe (7-10)
[2020-12-08 13:31] VITALS: BP 129/78
== END 2020-12-08 16:58 | disposition home or self-care (01) ==
LOC: ED 17:10 → 3A 23:36 → INTOOBSV 23:36
PROVIDERS: ADMIT Internal Medicine; ATTEND Internal Medicine
DX: K40.30 Unilateral inguinal hernia, with obstruction, without gangrene, not specified as recurrent (principal); R65.10 Systemic inflammatory response syndrome (SIRS) of non-infectious origin without acute organ dysfunction; D72.829 Elevated white blood cell count, unspecified; N50.812 Left testicular pain; F17.210 Nicotine dependence, cigarettes, uncomplicated; R11.2 Nausea with vomiting, unspecified; Z79.899 Other long term (current) drug therapy; Z98.890 Other specified postprocedural states
CPT/HCPCS: 36415; 49507; 80048; 80053; 83690; 85025; 96361; 96365; 96366; 96372; 96375; 96376; 99284; 99406; G0378; J0295; J1100; J1170; J1644; J1885; J2175; J2250; J2270; J2405; J2704; J2710; J3010; J7030; J7042; 85007; J1815; J3490; J7120; Q0162